=== PATIENT | female | born 1945 | race Caucasian/White ===

== ENCOUNTER 2021-09-15 07:53 | Outpatient (CLI) | payer MEDICARE, BC, SELFPAY ==
[2021-09-15 09:56] LABS: Chloride* 92 mmol/L (96-114); Sodium* 128 mmol/L (135-149)
[2021-09-15 09:57] LABS: Potassium* 4.4 mmol/L (3.6-5.1)
[2021-09-15 09:59] LABS: Blood Urea Nitrogen* 21 mg/dL (7-30); Carbon Dioxide* 27 mmol/L (20-32); Cholesterol* 174 mg/dL (90-199); Creatinine* 1.1 mg/dL (0.5-1.5); Estimated Glomerular Filt Rate 52 ml/min
[2021-09-15 10:00] LABS: Calcium* 9.8 mg/dL (8.4-10.6); Glucose* 99 mg/dL (60-115); HDL Cholesterol* 51 mg/dL (>=50); LDL Cholesterol Calculated 94 mg/dL (<100); Triglycerides* 147 mg/dL (40-149)
[2021-09-15 10:28] LABS: Vitamin D 25 Hydroxy* 45 ng/mL (30-80)
== END 2021-09-15 07:54 | disposition home or self-care (01) ==
PROVIDERS: PCP Internal Medicine; Visit Provider Internal Medicine
DX: Z00.00 Encounter for general adult medical examination without abnormal findings (principal); E78.5 Hyperlipidemia, unspecified; I10 Essential (primary) hypertension; M85.80 Other specified disorders of bone density and structure, unspecified site; D68.51 Activated protein C resistance; E66.9 Obesity, unspecified
CPT/HCPCS: 80048; 80061; 82306

== ENCOUNTER 2021-10-08 14:19 | Outpatient (CLI) | payer MEDICARE, BC, SELFPAY ==
--- NOTE | 2021-10-08 14:40 | CRLHL7_ITS ---
For Patients: As a result of the Century Cures Act, medical imaging exams and procedure reports are released immediately into your electronic medical record. You may view this report before your referring provider. If you have questions, please contact your health care provider. BILATERAL SCREENING MAMMOGRAM WITH COMPUTER-AIDED DETECTION AND TOMOSYNTHESIS TECHNIQUE: CC and MLO views were obtained. These mammographic images have been obtained using full-field digital technique. These mammographic images were interpreted with the benefit of computer-aided detection. Breast Tomosynthesis was used in this interpretation. COMPARISON FILM: 09/11/20, 09/11/19, 06/29/18. FINDINGS: There are scattered areas of fibroglandular density IMPRESSION: There is no radiographic evidence for malignancy. ASSESSMENT: BI-RADS Category 1: Negative RECOMMENDATION: Routine screening mammogram in 1 year. A lay language report of this examination will be provided to the patient. Medhat Love M.D. Diagnostic Radiologist [email or web address] LINH/Dictated by: Medhat Love MD @ 10/09/2021 12:17:00 PM (Electronically Signed)
== END 2021-10-08 14:20 | disposition home or self-care (01) ==
LOC: MAMMO 14:20
PROVIDERS: PCP Internal Medicine; Visit Provider Internal Medicine
DX: Z12.31 Encounter for screening mammogram for malignant neoplasm of breast (principal)
CPT/HCPCS: 77063; 77067

== ENCOUNTER 2022-10-12 08:35 | Outpatient (CLI) | payer MEDICARE, BC, SELFPAY ==
--- NOTE | 2022-10-12 09:15 | CRLHL7_ITS ---
For Patients: As a result of the Cures Act, medical imaging exams and procedure reports are released immediately into your electronic medical record. You may view this report before your referring provider. If you have questions, please contact your health care provider. BILATERAL SCREENING MAMMOGRAM WITH COMPUTER-AIDED DETECTION AND TOMOSYNTHESIS TECHNIQUE: CC and MLO views were obtained. These mammographic images have been obtained using full-field digital technique. These mammographic images were interpreted with the benefit of computer-aided detection. Breast Tomosynthesis was used in this interpretation. COMPARISON FILM: 10/08/21, 09/11/20, 09/11/19. FINDINGS: There are scattered areas of fibroglandular density IMPRESSION: There is no radiographic evidence for malignancy. ASSESSMENT: BI-RADS Category 1: Negative RECOMMENDATION: Routine screening mammogram in 1 year. A lay language report of this examination will be provided to the patient. Medhat Love M.D. Diagnostic Radiologist [email or web address] SONALI/zach Transcribed: 2:46 p.mPhan serrano/Dictated by: Medhat Love MD @ 10/13/2022 12:36:00 PM (Electronically Signed)
== END 2022-10-12 08:36 | disposition home or self-care (01) ==
LOC: MAMMO 08:40
PROVIDERS: PCP Internal Medicine; Visit Provider Internal Medicine
DX: E78.2 Mixed hyperlipidemia (principal); I10 Essential (primary) hypertension; M85.88 Other specified disorders of bone density and structure, other site; Z12.31 Encounter for screening mammogram for malignant neoplasm of breast
CPT/HCPCS: 77063; 77067; 80048; 80061; 82306

== ENCOUNTER 2023-10-21 07:46 | Outpatient (CLI) | payer MEDICARE, BC, SELFPAY ==
--- OUTSIDE RECORDS SUMMARY | 2023-10-27 05:35 | XMS_ITS | Clinical Summary ---
Author Organization [facility] Address [place], [place] [address] Care Team Providers Care Stunt Driver Name Role Phone Clinic, [employer] [facility] Primary Care Provide r Allergies No [...] age 65+ 10/16/2023 11/28/2012 ([facility]) Tdap Completed 05/19/2006 DEXA/DXA scan for [...] Recently Relevant to Health Maintenance Care Teams Stunt Driver Relationship Specialty Start Date End Date [facility], [facility] [address] [place] [address] PCP - General 10/24/13
== END 2023-10-21 07:47 | disposition home or self-care (01) ==
LOC: NFLDREF 10-27 05:33
PROVIDERS: PCP Internal Medicine; Referring Provider Internal Medicine; Visit Provider Internal Medicine
DX: M85.80 Other specified disorders of bone density and structure, unspecified site (principal); I10 Essential (primary) hypertension; E78.5 Hyperlipidemia, unspecified
CPT/HCPCS: 80048; 80061; 82306

== ENCOUNTER 2023-10-25 08:52 | Outpatient (CLI) | payer MEDICARE, BC, SELFPAY ==
--- OUTSIDE RECORDS SUMMARY | 2023-10-25 09:06 | XMS_ITS | Clinical Summary ---
Author Organization [facility] Address [place], [place] [address] Care Team Providers Care Barrel Raiser Helper Name Role Phone Clinic, dVisit [facility] Primary Care Provide r Allergies No known active allergies Medications Medication Sig Dispensed Refills Start Date End Date Status aspirin 81 mg tabletIndications:Unspe cified essential hypertension Take 1 tablet by mouth once daily. 0 01/14/2012 Active coenzyme q10 (CO Q-10) 100 mg cap Take 1 capsule by mouth once daily. 0 01/17/2012 Active lisinopril (PRINIVIL; ZESTRIL) 40 mg tabletIndications:Unspe cified essential hypertension Take 1 tablet by mouth once daily. 90 tablet 3 05/25/2013 Active triamterene-hydrochloro thiazide, 37.5-25 mg, (MAXZIDE-25) 37.5-25 mg tabletIndications:Unspe cified essential hypertension Take 1 tablet by mouth once daily. 90 tablet 3 05/25/2013 Active simvastatin (ZOCOR) 20 mg tabletIndications:Mixed hyperlipidemia Take 1 tablet by mouth at bedtime. 90 tablet 3 05/25/2013 Active Active Problems Problem Noted Date Diagnosed Date Vitamin D deficiency 12/21/2011 Factor V Leiden mutation 05/12/2011 Osteopenia 10/09/2010 Mixed hyperlipidemia 08/13/2008 Unspecified essential hypertension Immunizations Name Administration Dates Next Due Pneumococcal Poly,23-Valent (Pneumovax) 05/26/19 14 Tdap 05/19/2006 Zoster (Zostavax-ZVL, live) 05/25/2013 Family History Medical History Relation Name Comments Heart Disease Mother Heart attack a t 65 Relation Name Status Comments Mother Social History Tobacco Use Types Packs/Day Years Used Date Smoking Tobacco: Never Smokeless Tobacco: Never Tobacco Cessation:Counseling Given: No Alcohol Use Standard Drinks/Week Comments Yes 0 (1 standard drink = 0.6 oz pur e alcohol) Occasional wine Sex and Gender Information Value Date Recorded Sex Assigned at Not on file Gender Identity Not on file Sexual Orientation Not on file Obstetrics History Para Term AB IAB SAB Ectopic Multiple Livin g Live Births 2 2 Date Outcome GA Total Labor Labor/2nd/3rd Weight Sex Type Anes PTL Karlene A1 A5 Name Clin Last Filed Vital Signs Vital Sign Reading Time Taken Comments Blood Pressure 124/70 05/25/2013 9:54 AM CDT Pulse 64 05/25/2013 9:54 AM CDT Temperature - - Respiratory Rate 14 05/25/2013 9:54 AM CDT Oxygen Saturation - - Inhaled Oxygen Concentration - - Weight 80.5 kg (177 lb 6.4 oz) 05/25/2013 9:54 A M CDT Height 165.7 cm (5' 5.25) 05/25/2013 9:54 AM CD T Body Mass Index 29.3 05/25/2013 9:54 AM CDT Plan of Treatment Health Maintenance Due Date Last Done Comments Depression screening for age 12+ 1958 BMI (ht and wt on same day) for age 18+ 1964 Hepatitis C screening for age 18-79 1963 RSV vaccine for adults or pr egnancy (1 - 1-dose 60+ series) 2006 Zoster (shingles) series for age 50+ (2 of 3) 07/20/2013 05/25/2013 Pneumococcal series for age 65+ (2 of 2 - PCV) 05/25/2014 05/25/2013 Tetanus booster 05/19/2016 05/19/2006 COVID-19 vaccine series ( season) 2023 Influenza for age 65+ 10/16/2023 11/28/2012 ([facility] Tdap Completed 05/19/2006 DEXA/DXA scan for age 65+ Completed 05/04/2011, 03/2008 Procedures Procedure Name Priority Date/Time Associated Diagnosis Comments XR DXA BONE DENSITY 2 SITES AXIAL Routine 05/04/2011 9:16 AM CDT Osteopenia from Last 3 Months or Most Recently Relevant to Health Maintenance Results * XR DEXA BONE DENSITY 2 SITES (05/04/2011 9:16 AM CDT) Anatomical Region Laterality Modality Spine, HIPS, HIPL, HIPR Other Narrative 05/12/2011 8:32 AM CDT Please see scanned document for results of this study. Procedure Note Sarah Sanchez PA - 05/12/2011 Please see scanned document for results of this study. Debi Jc NP DEXA from Last 3 Months or Most Recently Relevant to Health Maintenance Care Teams Barrel Raiser Helper Relationship Specialty Start Date End Date [facility], [facility] [address] [place] [address] PCP - General 10/24/13
== END 2023-10-25 08:53 | disposition home or self-care (01) ==
PROVIDERS: PCP Internal Medicine; Visit Provider Internal Medicine
DX: I48.91 Unspecified atrial fibrillation (principal); I10 Essential (primary) hypertension; R21 Rash and other nonspecific skin eruption; Z13.29 Encounter for screening for other suspected endocrine disorder
CPT/HCPCS: 80076; 83735; 84443; 86618

== ENCOUNTER 2023-11-04 09:46 | Outpatient (CLI) | payer MEDICARE, BC, SELFPAY ==
--- OUTSIDE RECORDS SUMMARY | 2023-11-04 09:50 | XMS_ITS | Clinical Summary ---
Author Organization [facility] Address [place], [place] [address] Care Team Providers Care Steward/Stewardess Dining Room Name Role Phone [facility], [facility] Primary Care Provide r Allergies No known [...] 05/25/2013 9:54 AM CDT Plan of Treatment Upcoming Encounters Date Type Department Care Team (Late st Contact Info) Description 11/04/2023 10:00 AM CDT Ancillary Procedure [facility] & [address] [address] Health Maintenance Due Date Last Done Comments [...] booster 05/19/2016 05/19/2006 COVID-19 vaccine series ( - season) 2023 Influenza for age 65+ 10/16/2023 11/28/2012 (Completed outside of [facility]) Tdap Completed 05/19/2006 DEXA/DXA scan for age [...] Recently Relevant to Health Maintenance Care Teams Steward/Stewardess Dining Room Relationship Specialty Start Date End Date Clinic, [facility] [address] [place] [address] PCP - General 10/24/13
== END 2023-11-04 09:47 | disposition home or self-care (01) ==
LOC: RAD 09:49
PROVIDERS: PCP Internal Medicine; Visit Provider Internal Medicine
DX: I48.91 Unspecified atrial fibrillation (principal); I51.7 Cardiomegaly
CPT/HCPCS: 93306

== ENCOUNTER 2023-12-22 11:19 | Outpatient (CLI) | payer MEDICARE, BC, SELFPAY ==
--- OUTSIDE RECORDS SUMMARY | 2023-12-22 11:22 | XMS_ITS | Clinical Summary ---
Author Organization [facility] Address [place], [place] [address] Care Team Providers Care Barrel Centerer Name Role Phone [facility], [employer] [facility] Primary Care Provide r Allergies No known [...] 10/09/2010 Mixed hyperlipidemia 08/13/2008 Unspecified essential hypertension Encounters Date Type Department Care Team Description 11/04/2023 10:00 AM CDT Ancillary Procedure [facility] [address] [facility] [address] [place] [address] 11/04/2023 Travel 10/25/2023 Orders Only [facility] [address] [place] [address] Nieves Edgar MD 1 scan: (1-Ord) ZIO REPORT from Last 3 Months Immunizations Name Administration Dates Next Due Pneumococcal [...] Hepatitis C screening for age 18-79 1964 Zoster (shingles) series for age 50+ (2 of 3) 07/20/2013 05/25/2013 Pneumococcal series for age 65+ (2 of 2 - PCV) 05/25/2014 05/25/2013 Tetanus booster 05/19/2016 05/19/2006 RSV vaccine for adults or pr egnancy (1 - 1-dose 75+ series) 2021 COVID-19 vaccine series ( - 2023-25 season) 2023 Influenza for age 65+ 10/16/2023 11/28/2012 ([facility] Tdap Completed 05/19/2006 DEXA/DXA scan for age 65+ Completed 05/04/2011, 03/2008 Procedures Procedure Name Priority Date/Time Associated Diagnosis Comments EXTENDED HOLTER Routine 11/08/2023 Atrial fibrillation (HC) ECHO TTE COMPLETE WO CONTRAST Routine 11/04/2023 10:47 AM CDT Unspecified atrial fibrillation (HC) XR DXA BONE DENSITY 2 SITES AXIAL Routine 05/04/2011 9:16 AM CDT Osteopenia from Last 3 Months or Most Recently Relevant to Health Maintenance Results * EXTENDED HOLTER (11/08/2023) Nieves Edgar MD [facility]ARDI[facility] SERVICES O RD * ECHO TTE COMPLETE WO CONTRAST (11/04/2023 10:47 AM CDT) AORTIC VALVE MEAN PG 2 mmHg EJECTION FRACTION 56 % PEAK TR VELOCITY 2.3 m/s LVEDD 4.1 cm EJECTION FRACTION 60 - 65% Anatomical Region Laterality Modality Ultrasound 11/04/2023 10:0 3 AM CDT Narrative 11/04/2023 11:03 AM CDT ECHOCARDIOGRAM KENNY BETANCOURT ? Accession#: ?? [id number] : ?1945 78 years Study Date: ?? 11/04/2023 10:03:33 AM Gender: F ?BP: ? 109/70 mmHg Height: 165.00 cm ?BSA: ?1.87 m? ? ? Weight: 80.00 kg ? Tech: ? MSR ? Referring MD: NIEVES EDGAR Site: ? [facility] Reading Location: Mobile OP Patient Location: Outpatient. Procedure: 2D, Color Doppler and Spectral Doppler. Indication for study: Unspecified atrial fibrillation Cardiac Rhythm: Irregular.Study quality: Fair. Final Impressions: 1. Normal LV size, normal wall thickness, normal function with an estimated EF of 60 - 65%. 2. Right ventricular cavity size is mildly enlarged, global systolic RV function is normal. 3. Mildly enlarged left atrium. 4. No significant valve disease detected. Comparison There are no prior studies on this patient for comparison purposes. Chamber Sizes and Function Normal left ventricular size, normal wall thickness, normal global systolic function with an estimated EF of 60 - 65%. Left atrial size is mildly enlarged. Left atrial pressure is normal. Right ventricular cavity size is mildly enlarged, global systolic RV function is normal. RV wall thickness is normal. The right atrium is normal. Right atrial volume index is 31 ml/m? ? ?. Right atrial area is 18 cm? ? ?. The pulmonary artery is of normal size and origin. The sinus of Valsalva is normal sized. The ascending aorta is normal sized. Valves, RV Pressures and Diastolic Function The aortic valve is normal in structure and trileaflet, no stenosis and no regurgitation. The mitral valve is normal in structure, trace mitral regurgitation. Normal diastolic function. The tricuspid valve is normal in structure. Tricuspid regurgitation is mild regurgitation. The tricuspid regurgitant velocity is 2.3 m/s, the estimated right ventricular systolic pressure is 22 mmHg plus right atrial pressure. The pulmonic valve is normal. No pulmonary regurgitation. Masses, Effusion, Shunts There is no pericardial effusion. The inferior vena cava is normal sized, respiratory size variation greater than 50%. No left to right shunting was detected by limited color flow Doppler interrogation of the interatrial septum. MEASUREMENTS AND CALCULATIONS 2-D Measurements and LV Function: LVID (d) 4.1 cm LV FS% (2D) ?? 35 % LVID (s) 2.7 cm LVOT diameter 2.1 cm IVS (d) ??1.0 cm HR ?96 bpm LVPW (d) 1.0 cm LA Vol index ??26 ml/m2 Ao Sinus 3.1 cm RA Vol index ??31 ml/m2 Asc Ao ?? 3.4 cm RA area ? 18 cm?RV Max 4C (d) 4.4 cm Diastology: Mitral ?Tissue Doppler E Peak 0.7 m/s ??e', Septum ? 0.11 m/s DT ? 160 msec e', Lateral ?0.11 m/s ?E/e' Average ?? 6.48 Aortic Valve: Vmax ? 1.0 m/s ??NIKOS (V) ?? 3.37 cm? ? ? VTI ?0.19 m ?? NIKOS (I) ?? 2.91 cm? ? ? LVOT V max 1.0 m/s ??Max PG ?4 mmHg LVOT VTI ?? 0.16 m ?? Mean PG ?? 2 mmHg SV ? 55 ml ?Dim Index 0.86 SV index ?? 29 ml/m? ? ? CO ?5.3 l/min ?CI ?2.8 l/min/m? ? ? Mitral Valve: MVA ?4.8 cm? ? ? MV P 1/2 46 msec Tricuspid Valve and estimated PA pressures: TR Vmax 2.3 m/s TAPSE 2.2 cm TR maxG 22 mmHg . This study was interpreted by an [facility] accredited facility. CC: [facility] (formerly [facility]) [facility]. ??Final ?? Procedure Note Connor Osei MD - 11/04/2023 ECHOCARDIOGRAM KENNY BETANCOURT : 1945 78 years Study Date: 11/04/2023 10:03:33 AM Gender: F BP: 109/70 mmHg Height: 165.00 cm BSA: 1.87 m? ? ? Weight: 80.00 kg Tech: GABINO Referring MD: NIEVES EDGAR Site: [facility] Reading Location: Mobile OP Patient Location: Outpatient. Procedure: 2D, Color Doppler and Spectral Doppler. Indication for study: Unspecified atrial fibrillation Cardiac Rhythm: Irregular.Study quality: Fair. Final Impressions: 1. Normal LV size, normal wall thickness, normal function with anestimated EF of 60 - 65%. 2. Right ventricular cavity size is mildly enlarged, global systolic RVfunction is normal. 3. Mildly enlarged left atrium. 4. No significant valve disease detected. Comparison There are no prior studies on this patient for comparison purposes. Chamber Sizes and Function Normal left ventricular size, normal wall thickness, normal globalsystolic function with an estimated EF of 60 - 65%. Left atrial size ismildly enlarged. Left atrial pressure is normal. Right ventricular cavitysize is mildly enlarged, global systolic RV function is normal. RV wallthickness is normal. The right atrium is normal. Right atrial volume indexis 31 ml/m? ? ?. Right atrial area is 18 cm? ? ?. The pulmonary artery is ofnormal size and origin. The sinus of Valsalva is normal sized. Theascending aorta is normal sized. Valves, RV Pressures and Diastolic Function The aortic valve is normal in structure and trileaflet, no stenosis and noregurgitation. The mitral valve is normal in structure, trace mitralregurgitation. Normal diastolic function. The tricuspid valve is normal instructure. Tricuspid regurgitation is mild regurgitation. The tricuspidregurgitant velocity is 2.3 m/s, the estimated right ventricular systolicpressure is 22 mmHg plus right atrial pressure. The pulmonic valve isnormal. No pulmonary regurgitation. Masses, Effusion, Shunts There is no pericardial effusion. The inferior vena cava is normal sized,respiratory size variation greater than 50%. No left to right shunting wasdetected by limited color flow Doppler interrogation of the interatrialseptum. MEASUREMENTS AND CALCULATIONS 2-D Measurements and LV Function: LVID (d) 4.1 cm LV FS% (2D) 35 % LVID (s) 2.7 cm LVOT diameter 2.1 cm IVS (d) 1.0 cm HR 96 bpm LVPW (d) 1.0 cm LA Vol index 26 ml/m2 Ao Sinus 3.1 cm RA Vol index 31 ml/m2 Asc Ao 3.4 cm RA area 18 cm? ? ? RV Max 4C (d) 4.4 cm Diastology: Mitral Tissue Doppler E Peak 0.7 m/s e', Septum 0.11 m/s DT 160 msec e', Lateral 0.11 m/s E/e' Average 6.48 Aortic Valve: Vmax 1.0 m/s NIKOS (V) 3.37 cm? ? ? VTI 0.19 m NIKOS (I) 2.91 cm? ? ? LVOT V max 1.0 m/s Max PG 4 mmHg LVOT VTI 0.16 m Mean PG 2 mmHg SV 55 ml Dim Index 0.86 SV index 29 ml/m? ? ? CO 5.3 l/min CI 2.8 l/min/m? ? ? Mitral Valve: MVA 4.8 cm? ? ? MV P 1/2 46 msec Tricuspid Valve and estimated PA pressures: TR Vmax 2.3 m/s TAPSE 2.2 cm TR maxG 22 mmHg . This study was interpreted by an [facility] accredited facility. CC: [facility] (formerly [facility]) [facility]. Final Nieves Edgar MD ECHO ORD * XR DEXA BONE DENSITY 2 SITES [...] Relevant to Health Maintenance Care Teams Barrel Centerer Relationship Specialty Start Date End Date [facility], [facility] [address] [place], [place] [id number] PCP - General 10/24/13
--- NOTE | 2023-12-22 11:30 | CRLHL7_ITS ---
For Patients: As a result of the Century Cures Act, medical imaging exams and procedure reports are released immediately into your electronic medical record. You may view this report before your referring provider. If you have questions, please contact your health care provider. BILATERAL SCREENING MAMMOGRAM WITH COMPUTER-AIDED DETECTION AND TOMOSYNTHESIS TECHNIQUE: CC and MLO views were obtained. These mammographic images have been obtained using full-field digital technique. These mammographic images were interpreted with the benefit of computer-aided detection. Breast tomosynthesis was used in this interpretation. COMPARISON FILM: 10/12/22, 10/08/21, 09/11/20. FINDINGS: There are scattered areas of fibroglandular density. IMPRESSION: There is no radiographic evidence for malignancy. ASSESSMENT: BI-RADS Category 1: Negative RECOMMENDATION: Routine screening mammogram in 1 year. A lay language report of this examination will be provided to the patient. MEDHAT AGOSTO M.D. Diagnostic Radiologist [email or web address] SONALI/rober Transcribed: 12/29/2023, 4:[address]/Dictated by: Medhat Agosto MD @ 12/29/2023 10:10:00 AM (Electronically Signed)
== END 2023-12-22 11:20 | disposition home or self-care (01) ==
LOC: MAMMO 11:20
PROVIDERS: PCP Internal Medicine; Visit Provider Internal Medicine
DX: Z12.31 Encounter for screening mammogram for malignant neoplasm of breast (principal)
CPT/HCPCS: 77063; 77067

== ENCOUNTER 2024-09-25 08:52 | Outpatient (CLI) | payer MEDICARE, BC, SELFPAY | END 2024-09-25 08:53 | disposition home or self-care (01) | PROVIDERS: PCP Internal Medicine; Visit Provider Internal Medicine | DX: L08.9 Local infection of the skin and subcutaneous tissue, unspecified (principal) | CPT/HCPCS: 84550; 87070; 87205; 89060 ==

== ENCOUNTER 2024-12-20 08:27 | Outpatient (CLI) | payer MEDICARE, BC, SELFPAY | END 2024-12-20 08:28 | disposition home or self-care (01) | LOC: NFLDREF 12-24 03:39 | PROVIDERS: PCP Internal Medicine; Referring Provider Internal Medicine; Visit Provider Internal Medicine | DX: E78.5 Hyperlipidemia, unspecified (principal); M85.80 Other specified disorders of bone density and structure, unspecified site; Z00.00 Encounter for general adult medical examination without abnormal findings | CPT/HCPCS: 80048; 80061; 82306 ==

== ENCOUNTER 2025-01-09 11:11 | Outpatient (CLI) | payer MEDICARE, BC, SELFPAY ==
--- NOTE | 2025-01-09 11:30 | CRLHL7_ITS ---
For Patients: As a result of the Century Cures Act, medical imaging exams and procedure reports are released immediately into your electronic medical record. You may view this report before your referring provider. If you have questions, please contact your health care provider. INDICATION: BILATERAL SCREENING MAMMOGRAM, ASYMPTOMATIC 79 Y/O FEMALE COMPARISON: 12/22/2023, 10/12/2022, 10/08/2021 TECHNIQUE: Digital mammogram in CC and MLO projections including computer-aided detection (CAD) and tomosynthesis. BREAST COMPOSITION: There are scattered areas of fibroglandular density. FINDINGS: No suspicious findings. ASSESSMENT: BI-RADS 1 Negative RECOMMENDATION: Annual screening mammogram. A lay language report of this examination will be provided to the patient. Dictated by: Tatyana Bedolla MD @ 01/11/2025 13:01:12 (Electronically Signed)
== END 2025-01-09 11:12 | disposition home or self-care (01) ==
LOC: MAMMO 11:11
PROVIDERS: PCP Internal Medicine; Visit Provider Internal Medicine
DX: Z12.31 Encounter for screening mammogram for malignant neoplasm of breast (principal)
CPT/HCPCS: 77063; 77067